=== PATIENT | female | born 1960 | race Caucasian/White ===

== ENCOUNTER → 2020-12-18 03:43 | Outpatient (CLI) | payer OTHER, SELFPAY ==
[2020-12-18 18:11] LABS: SARS-CoV-2 RNA PCR Negative
== END ==
PROVIDERS: PCP Family Medicine; Visit Provider Physician Assistant
DX: Z20.822 Contact with and (suspected) exposure to COVID-19 (principal)
CPT/HCPCS: C9803; U0003; U0005

== ENCOUNTER 2022-12-01 00:28 | Day surgery (SDC) | payer OTHER, SELFPAY ==
[2022-11-18 14:08] VITALS: BMI 26.6
[2022-12-01 06:52] VITALS: BP 146/67; PULSE 73; RESP 18; TEMP 36.3; O2SAT 98
[2022-12-01] MEDS: LACTATED RINGERS 1,000 ML 150 ML IV CONT (06:59)
--- NOTE | 2022-12-01 07:20 | PM.HPGS ---
History of Present Illness History of Present Illness Consent: Risks, benefits, and alternatives have been discussed and questions answered. Patient agrees to proceed with procedure. Chief complaint: neoplasm screening Narrative: Zehra Diane is a 62 year old female Presents for screening colonoscopy. Patient's father had colon cancer. Patient had previous colonoscopy 2016 that was unremarkable. Patient's current weight appetite and bowel movements are normal. she denies any blood in her stools. She has no abdominal pain. Review of Systems Review of Systems: Review of systems noncontributory. [facility] Past Medical History Medical History (Updated 12/01/22 @ 07:22 by Oumar Garrett MD) Acquired hypothyroidism Allergic rhinitis, unspecified Benign essential hypertension Generalized anxiety disorder Hyperlipidemia Vitamin D deficiency, unspecified Surgical History Surgical History [place] teeth removed Family History Family History (Updated 03/27/22 @ 11:18 by Annabel Garcia MA) Father Carcinoma of colon Mother Hypertension Grandparent Cerebrovascular accident Maternal Grandfather Social History Social History (Updated 03/27/22 @ 11:19 by Annabel Garcia MA) Smoking status: Never smoker Additional smoking assessment comments: Quit 33 years ago Alcohol intake: current Drinks per week: 8 Substance use: never Substance use type: does not use Lack of Transportation: No Lack of Food: Sometimes True Current Housing: I Have Housing Concerned About Future Housing: No Difficulty Paying Gas/Electric Bills: No Difficulty Paying for Meds: No Currently Unemployed: No Difficulty w/ Childcare or Family Care: No Living arrangements: other Additional living arrangements comments: with sp Occupation/Education: occupation Gender identity (if verbalized by the patient): Female Sexual Orientation (if Verbalized by the Patient): Straight or Heterosexual Spiritual care concerns: No Meds Home Medications and Allergies Home Medications Medication Instructions Recorded Confirmed Type atorvastatin 10 mg tablet 10 mg PO DAILY 03/27/22 11/18/22 History levothyroxine 125 mcg capsule 125 mcg PO DAILY 03/27/22 11/18/22 History lisinopril 10 mg tablet 10 mg PO DAILY 03/27/22 11/18/22 History multivitamin (Daily Multi-Vitamin 1 tablet PO DAILY 03/27/22 11/18/22 History tablet) montelukast 10 mg tablet 10 mg PO DAILY #90 tabs 02/21/23 10/11/23 Rx sertraline 100 mg tablet 100 mg PO DAILY #90 tabs 03/31/22 11/18/22 Rx Allergies Allergy/AdvReac Type Severity Reaction Status Date / Time clindamycin Allergy Unknown Rash Verified 12/01/22 06:50 Vital Signs Vital Signs - 24 hr 12/01/22 06:52 Temperature 97.4 F L Pulse Rate 73 Respiratory Rate 18 Blood Pressure 146/67 H Pulse Oximetry 98 Oxygen Delivery Room Air Exam Narrative: Physical exam reveals patient to be alert. Vital signs stable. HEENT exam is unremarkable. Patient is anicteric. Lungs are clear to auscultation and percussion. Heart is without murmur or extra sounds. Abdomen bowel sounds are present soft nontender with no organomegaly. Digital external rectal exam is normal. Assessment and Plan Assessment and plan (1) Family history of colon cancer in father: Code(s): Z80.0 - Family history of malignant neoplasm of digestive organs Status: Acute Assessment and Plan: Patient's father has had colon cancer. Plan for neoplasia screening now and consider this a 5 year intervals in the future.
--- NOTE | 2022-12-01 07:57 | WPDANESEPPF ---
Anes - Initial Pre Proc Eval Procedure: Operation Date: 12/01/22 08:00 Proposed Procedures p Screening Colonoscopy - Oumar Garrett MD Date/Time: 12/01/22 07:57 Surgeon: Oumar Garrett MD Pre Op Diagnosis: neoplasm screening Patient Data Age: 62 Gender: F Height: 1.68 m Weight: 70.1 kg Last Vital Signs Temp 97.4 F L 12/01/22 06:52 Pulse 73 12/01/22 06:52 Resp 18 12/01/22 06:52 BP 146/67 H 12/01/22 06:52 Pulse Ox 98 12/01/22 06:52 O2 Del Method Room Air 12/01/22 06:52 Allergies Allergy/AdvReac Type Severity Reaction Status Date / Time clindamycin Allergy Unknown Rash Verified 12/01/22 06:50 Home Medications Medication Instructions Recorded Confirmed Type atorvastatin 10 mg tablet 10 mg PO DAILY 03/27/22 11/18/22 History levothyroxine 125 mcg capsule 125 mcg PO DAILY 03/27/22 11/18/22 History lisinopril 10 mg tablet 10 mg PO DAILY 03/27/22 11/18/22 History multivitamin (Daily Multi-Vitamin 1 tablet PO DAILY 03/27/22 11/18/22 History tablet) montelukast 10 mg tablet 10 mg PO DAILY #90 tabs 03/31/22 11/18/22 Rx sertraline 100 mg tablet 100 mg PO DAILY #90 tabs 03/31/22 11/18/22 Rx Patient hx anesthesia problems: none Family hx anesthesia problems: none Results Review: All pre-operative results and documents have been reviewed as part of the pre-operative evaluation. [facility] Past Medical History Medical History (Updated 12/01/22 @ 07:22 by Oumar Garrett MD) Acquired hypothyroidism Allergic rhinitis, unspecified Benign essential hypertension Generalized anxiety disorder Hyperlipidemia Vitamin D deficiency, unspecified Surgical History Surgical History [place] teeth removed Family History Family History (Updated 03/27/22 @ 11:18 by Annabel Garcia MA) Father Carcinoma of colon Mother Hypertension Grandparent Cerebrovascular accident Maternal Grandfather Social History Social History (Updated 03/27/22 @ 11:19 by Annabel Garcia MA) Smoking status: Never smoker Additional smoking assessment comments: Quit 33 years ago Alcohol intake: current Drinks per week: 8 Substance use: never Substance use type: does not use Lack of Transportation: No Lack of Food: Sometimes True Current Housing: I Have Housing Concerned About Future Housing: No Difficulty Paying Gas/Electric Bills: No Difficulty Paying for Meds: No Currently Unemployed: No Difficulty w/ Childcare or Family Care: No Living arrangements: other Additional living arrangements comments: with sp Occupation/Education: occupation Gender identity (if verbalized by the patient): Female Sexual Orientation (if Verbalized by the Patient): Straight or Heterosexual Spiritual care concerns: No Anes - Eval Final PreProcedure Day of Procedure 12/01/22 07:57 Patient weight: normal Heart: regular rate and rhythm Lungs: clear to auscultation Airway: Mallampati scale class II Neurological: alert and oriented Last oral intake: >/= 8 hours ASA classification: II Emergent: no Anesthetic plan: proceed Anesthesia type and monitoring: general GIVS and standard monitoring Results Review: All pre-operative results and documents have been reviewed as part of the pre-operative evaluation. Informed Consent: The patient's anesthetic plan and its attendant risks and benefits were discussed with the patient/family/POA. Questions were solicited and answers provided to the satisfaction of the patient/family/POA.
[2022-12-01 08:12] VITALS: BP 108/54; PULSE 68; RESP 20; O2SAT 98
[2022-12-01 08:22] VITALS: BP 111/59; PULSE 64; RESP 18; O2SAT 99
[2022-12-01 08:32] VITALS: BP 132/75; PULSE 58; RESP 16; O2SAT 100
== END 2022-12-01 08:35 | disposition home or self-care (01) ==
PROVIDERS: PCP Family Medicine; Visit Provider Internal Medicine Gastroenterology
PROC: 0DJD8ZZ Inspection of Lower Intestinal Tract, Via Natural or Artificial Opening Endoscopic (ICD-10-PCS; CPT 45378; principal; 2022-12-01 08:00)
DX: Z12.11 Encounter for screening for malignant neoplasm of colon (principal); K64.8 Other hemorrhoids; K57.30 Diverticulosis of large intestine without perforation or abscess without bleeding; Z80.0 Family history of malignant neoplasm of digestive organs; E03.9 Hypothyroidism, unspecified; E78.5 Hyperlipidemia, unspecified; E55.9 Vitamin D deficiency, unspecified; I10 Essential (primary) hypertension; F41.1 Generalized anxiety disorder
CPT/HCPCS: 45378; J2704; J7120